=== PATIENT | male | born 1985 | race Caucasian/White ===

== ENCOUNTER 2024-11-17 16:50 | Emergency (ER) | payer BC, SELFPAY ==
[2024-11-17 17:00] VITALS: BP 165/95
[2024-11-17 17:27] LABS: % Basophils 0.5 % (0-2); % Eosinophils 0.8 % (0-6); % Immature Granulocytes 0.3 % (0-0.5); % Lymphocytes 31.6 % (20.5-51.1); % Monocytes 7.1 % (1.7-9.3); % Neutrophils 59.7 % (42.2-75.2); Absolute Eosinophils 0.1 10^3/uL (0-0.7); Absolute Lymphocytes 2.3 10^3/uL (1.2-3.4); Absolute Monocytes 0.5 10^3/uL (0.1-0.6); Absolute Neutrophils 4.4 10^3/uL (1.4-6.5); Hematocrit 50.9 % (39.0-52.0); Hemoglobin 17.3 g/dL (13.0-18.0); Mean Corpuscular Hgb 28.4 pg (27.0-31.0); Mean Corpuscular Volume 83.4 fL (80.0-94.0); Mean Platelet Volume 9.6 fL (7.4-10.4); Nucleated Red Blood Cells % 0 % (-); Platelet Count 290 10^3/uL (130-400); Red Cell Dist. Width 12.2 % (11.5-14.5); White Blood Cell Count 7.3 10^3/uL (4.8-10.8)
[2024-11-17 17:34] LABS: ALT (SGPT) 58 U/L (0-50); AST (SGOT) 34 U/L (17-59); Alkaline Phosphatase 148 U/L (38-126); Blood Urea Nitrogen 12 mg/dl (9-20); Calcium 9.7 mg/dl (8.4-10.2); Carbon Dioxide 29 mmol/L (22-30); Chloride 100 mmol/L (98-107); Glucose 108 mg/dl (70-99); Sodium 138 mmol/L (135-145); Total Protein 8.1 g/dl (6.3-8.2); eGFR > 60.00
[2024-11-17 17:42] LABS: Troponin I < 0.012 ng/ml
[2024-11-17 18:47] VITALS: BP 115/100
[2024-11-17 19:00] VITALS: BP 132/97
--- NOTE | 2024-11-17 19:05 | ED.GENMED ---
History of Present Illness
General
Chief Complaint: Chest Pain
Source: patient and spouse
Exam Limitations: none
Time Seen by Provider: 11/17/24 19:04
Nursing documentation reviewed up to this point in time: agreed with
History of Present Illness
History of Present Illness:
The patient is a pleasant 39-year-old man who comes in with complaints of intermittent central chest tightness for 2 days. Patient reports that it last for a few minutes at a time and goes away. He does not feel that it is associated with deep
breathing, nor movement, exertion or eating. Patient reports it comes and goes regardless of what position he is in. He denies associated shortness of breath, nausea, vomiting, dizziness and sweating. He denies a history of PE and DVT. He denies
leg pain and leg swelling. Patient denies a history of smoking cigarettes, high blood pressure and high cholesterol. Currently it is nearly gone.
Past History
Past History
ED Past Medical History: Seizures (As a young child) and Other (Irritable bowel syndrome)
ED Past Surgical History: Other
Social History
Tobacco: Non-smoker
Alcohol: Other
Drug: None
Personal:
Living: with family
Employment: Employed
Family History
Family History: Negative CAD or Sudden
Review of Systems
Review of Systems
Allergies reviewed?: Yes
Other source history: family
All Other Systems: ROS reviewed and negative except as documented in HPI and ROS
Constitutional: Reports no symptoms
EENT: Reports no symptoms
Respiratory: Reports no symptoms
Cardiac: Reports chest pain
ABD/GI: Reports no symptoms
: Reports no symptoms
Musculoskeletal: Reports no symptoms
Skin: Reports no symptoms
Neurological: Reports no symptoms
Endocrine: Reports no symptoms
Hematologic/Lymphatic: Reports no symptoms
Psychiatric: Reports no symptoms
Phy Exam
Physical Exam
Physical Exam:
Physical Exam
General: no apparent distress, not acutely ill. Well appearing, smiling and conversational
Neck: supple. no meningeal signs. normal psoterior pharynx
Heart: s1/s2 regular rate and rhythm, no murmur. equal radial pulses.
Lungs: no acute respiratory distress. clear bilaterally
Abdomen: normal bowel sounds. not tender. no CVAT
Neuro: alert and oriented. no focal neurological deficits
Skin: no rash
Psychiatric: well kept. interactive and cooperative
Extremities: no edema. no calf tenderness. negative homans. good distal pulses
Scores
Heart Score for Chest Pain Patients
STEMI patient?: No
History: Slightly or Non-Suspicious
ECG: Normal
Age: </= 45 years
Risk Factors: No Risk Factors
Troponin: </= Normal Limit
Heart Score for Chest Pain Patients: 0
Heart Score Risk: 2.5% MACE over next 6 weeks
Course
Orders/Labs/Results
Orders:
Orders
11/17/24 16:51
Electrocardiogram (*1) Urgent
Reason for Study: Chest Pain
EKG- Treatment ONCE
11/17/24 17:10
Complete Blood Count/With Diff Urgent
Comprehensive Metabolic Panel Urgent
Troponin I Urgent
Abnormal Lab Results
11/17/24
17:10
Glucose 108 H mg/dl
(70-99)
ALT 58 H U/L
(0-50)
Alkaline Phosphatase 148 H U/L
(38-126)
11/17/24 17:10
11/17/24 17:10
Vital Signs
Initial and Last Documented VS:
Initial Vital Signs
Temp Pulse Resp BP Pulse Ox
98.2 F 58 16 165/95 100
11/17/24 17:00 11/17/24 17:00 11/17/24 17:00 11/17/24 17:00 11/17/24 17:00
Last Documented Vital Signs
Temp Pulse Resp BP Pulse Ox
98.2 F 76 17 132/97 99
11/17/24 17:00 11/17/24 19:00 11/17/24 19:00 11/17/24 19:00 11/17/24 19:00
MDM/Problems Addressed
Differential Diagnosis Includes:
Musculoskeletal chest pain, acute coronary syndrome, pneumonia, PE
MDM/Problems Addressed:
Patient presents with acute chest pain
Acute Exacerbation and/or Progression of Chronic Illness:
he is acutely hypertensive, however is repeated blood pressure, it was improved.
Acute Exacerbation and/or Progression of Chronic Illness: HTN
*Pulse Oximetry
Patient hypoxic: no
*EKG
Interpreted by ED Provider?: Yes
Interpretation: normal
Comparison EKG: no comparison EKG present
Rate: normal
Rhythm: sinus
[place]: normal axis
Interval: normal interval
QRS Pattern: normal QRS
Ischemia: no ischemia
*Perinatology Physician Interpretation
Rate: normal
Interpretation: normal
Rhythm: sinus
*Critical Care Note
Total Time (30-74mins, 75-104mins- exclusive of procedures): Not Applicable
Data Reviewed
Source: patient and spouse
Further Testing Considered But Not Given:
I considered ordering a chest x-ray, however, patient's lungs are completely clear and there is no sign of crackles or respiratory distress. His pulse ox is normal. Thus, decision made to hold off on the chest x-ray
Patient Management
Social determinants of health affecting care: Living situation and Strong social support
Escalation/DeEscalation of care consider admission/obs:
Patient appears extremely well and comfortable. He has no risk factors for acute coronary syndrome that I can identify. His EKG is normal and his troponin is normal. Is highly doubtful he is acute coronary syndrome. Pain is likely
musculoskeletal in etiology. Patient encouraged to take Motrin and to follow-up with primary doctor if pain is not improved in 2 to 3 days.
ED Attending Note
-
Portions of this chart may have been created with voice recognition software.� Occasional wrong word or��sound alike� substitutions may have occurred due to the inherent limitations of voice recognition software.
Discharge Plan
Departure
Patient Disposition: Home (Routine Discharge)
Date of Disposition: 11/17/24
Time of Disposition: 19:21
Patient with high blood pressure during this ER visit?: No
Condition: Good
Covid-19: Not Applicable
Discharge Problem:
Chest pain
Instructions: Chest Pain PCP Follow Up
Discharge Date and Time
Print Language: SPANISH
== END 2024-11-17 19:38 | disposition home or self-care (01) ==
LOC: EMR 16:50
PROVIDERS: Emergency Medicine; EMERGENCY PHYSICIAN Emergency Medicine; FAMILY PHYSICIAN Family Medicine
DX: R07.89 Other chest pain (principal); I10 Essential (primary) hypertension
CPT/HCPCS: 99284; 80053; 84484; 85025; 93005